=== PATIENT | male | born 1950 | race Native Hawaiian/Other Pacific Islander ===

== ENCOUNTER 2023-01-26 19:41 | Emergency (ER) | payer OTHER ==
[~2023-01-26] VITALS: Ht 188 cm; Wt 90.7 kg
[2023-01-26 19:45] VITALS: TEMP 98.1
[2023-01-26 22:50] VITALS: BP 145/82
== END 2023-01-26 22:50 | disposition home or self-care (01) ==
LOC: ED 19:41
DX: S06.0X0A Concussion without loss of consciousness, initial encounter (principal); S00.03XA Contusion of scalp, initial encounter; S00.01XA Abrasion of scalp, initial encounter; S70.01XA Contusion of right hip, initial encounter; W17.89XA Other fall from one level to another, initial encounter
CPT/HCPCS: 99283